=== PATIENT | male | born 2000 | race Caucasian/White ===

== ENCOUNTER 2019-03-02 17:32 | Emergency (ER) | payer MEDICAID ==
[~2019-03-02] VITALS: Ht 172.7 cm; Wt 86.2 kg
[2019-03-02 17:45] VITALS: BP 110/53
== END 2019-03-02 22:19 | disposition left against medical advice (07) ==
LOC: EDBD 17:32 → ER 17:38
DX: M79.18 Myalgia, other site (principal); Z53.21 Procedure and treatment not carried out due to patient leaving prior to being seen by health care provider

== ENCOUNTER 2020-05-04 13:32 | Emergency (ER) | payer MEDICAID ==
[~2020-05-04] VITALS: Ht 205.7 cm; Wt 77.1 kg
[2020-05-04] MEDS: MORPHINE SULFATE 4 MG/ML SYR/VIAL IV ONE (14:30)
[2020-05-04] MEDS: ONDANSETRON HCL 4 MG/2 ML VIAL IV ONE (14:30)
[2020-05-04 15:11] LABS: Basophils # (auto) 0 10 ^3/uL (0-0.2); Basophils % (auto) 0.4 % (0.0-2.0); Eosinophils # (auto) 0.1 10 ^3/uL (0-0.8); Eosinophils % (auto) 1.6 % (0.0-7.0); Hematocrit 40.7 % (41.0-53.0); Hemoglobin 13.7 g/dL (13.5-17.5); Lymphocytes # (auto) 2.3 10 ^3/uL (0.4-5.4); Lymphocytes % (auto) 33.8 % (10.0-50.0); Mean Corpuscular Hemoglobin 28.7 pg (28.0-32.0); Mean Corpuscular Hgb Conc. 33.6 g/dL (32.0-36.0); Mean Corpuscular Volume 85.4 fL (80.0-100.0); Monocytes # (auto) 0.4 10 ^3/uL (0-1.3); Monocytes % (auto) 6.3 % (0.0-12.0); Neutrophils # (auto) 3.9 10 ^3/uL (1.6-8.6); Neutrophils % (auto) 57.9 % (37.0-80.0); Nucleated Red Blood Cells % 0.2 %; Platelet Count (auto) 296 10^3/uL (140-450); Red Blood Cells 4.77 10^6/uL (4.5-5.90); Red Cell Distribution Width 13.4 % (11.8-14.3); White Blood Cell 6.7 10^3/uL (4.4-10.8)
[2020-05-04 15:34] LABS: Albumin 3.3 g/dL (3.4-5.0); Calcium 8.5 mg/dL (8.5-10.1); Potassium 3.6 mmol/L (3.5-5.1)
[2020-05-04 15:36] LABS: BUN/Creatinine Ratio 9.1
[2020-05-04 15:39] LABS: Bilirubin, Total 0.3 mg/dL (0.2-1.0); Total Protein 7.5 g/dL (6.4-8.2)
[2020-05-04 16:29] VITALS: BP 117/87
== END 2020-05-04 16:32 | disposition home or self-care (01) ==
LOC: ER 13:32
DX: L03.116 Cellulitis of left lower limb (principal); F17.210 Nicotine dependence, cigarettes, uncomplicated; Z59.0 Homelessness
CPT/HCPCS: 36415; 73700; 80053; 83605; 85025; 87040

== ENCOUNTER 2020-06-20 14:45 | Emergency (ER) | payer MEDICAID ==
[~2020-06-20] VITALS: Ht 205.7 cm; Wt 45.4 kg
[2020-06-20 15:08] VITALS: BP 130/76
== END 2020-06-20 17:17 | disposition home or self-care (01) ==
LOC: ER 14:45 → EDBD 14:45 → ER 15:35
DX: L03.116 Cellulitis of left lower limb (principal); F17.210 Nicotine dependence, cigarettes, uncomplicated

== ENCOUNTER 2020-12-01 17:23 | Emergency (ER) | payer MEDICAID ==
[~2020-12-01] VITALS: Ht 205.7 cm; Wt 90.7 kg
[2020-12-01 20:35] VITALS: BP 139/88
[2020-12-01] MEDS ORDERED: KETOROLAC TROMETH 60MG/2ML VIAL IM ONE (22:15)
== END 2020-12-01 23:06 | disposition home or self-care (01) ==
LOC: EDBD 17:23 → EDUNIT# 17:23 → ER 17:26
DX: S86.811A Strain of other muscle(s) and tendon(s) at lower leg level, right leg, initial encounter (principal); F17.210 Nicotine dependence, cigarettes, uncomplicated; W18.39XA Other fall on same level, initial encounter; Y93.89 Activity, other specified; Y92.89 Other specified places as the place of occurrence of the external cause; Y99.8 Other external cause status
CPT/HCPCS: 73562; 96372; 99283; J1885